=== PATIENT | male | born 1975 | race Caucasian/White ===

== ENCOUNTER 2018-05-19 16:11 | Emergency (ER) | payer MEDICAID | END 2018-05-19 19:21 | disposition home or self-care (01) | LOC: FTE 16:11 | DX: S92.302A Fracture of unspecified metatarsal bone(s), left foot, initial encounter for closed fracture (principal); V29.9XXA Motorcycle rider (driver) (passenger) injured in unspecified traffic accident, initial encounter | CPT/HCPCS: 29505; 73630-LT; 99283-25 ==